=== PATIENT | female | born 1940 | race Caucasian/White ===

== ENCOUNTER 2021-03-31 10:13 | Day surgery (SDC) | payer MEDICARE ==
[2021-03-30 14:39] LABS: ANION GAP 6 mmol/L (5-15); CALCIUM 9.3 mg/dL (8.5-10.1); CHLORIDE 110 mmol/L (98-107); CREATININE 0.76 mg/dL (0.55-1.02)
[~2021-03-31] VITALS: Ht 158.8 cm; Wt 65.0 kg
[~2021-03-31 10:13] MED LIST: ACETAMINOPHEN 650 MG/20.3 ML UDC PO PRN; BENAZAPRIL PO; BISACODYL 10 MG SUPP PR PRN; CEFAZOLIN PMX 2GM/50ML 50 ML IVPB SCH; DIPHENHYDRAMINE 50 MG CAPSULE PO PRN; DOCUSATE 100 MG CAPSULE PO SCH; EPINEPHRINE 1 MG/ML, 1ML ONE; HYDROcodone/APAP 5/325 TABLET PO PRN; HYDROmorphone 1 MG/ML, 1ML INJ IV PRN; KETOROLAC 30 MG/1 ML ONE; MAGNESIUM HYDROXIDE 8%, 30ML UDC PO PRN; NS + 20MEQ KCL 1,000 ML IV SCH; ONDANSETRON 2MG/ML, 2ML IV PRN; ONDANSETRON 4 MG TABLET PO PRN; OXYcodone IR 5MG TABLET PO PRN; ROPIvacaine/PF 0.5%, 20 ML ONE; ROPIvacaine/PF 0.5%, 30 ML ONE; SENNA/DOCUSATE TABLET PO PRN; SODIUM CHLORIDE 0.9% 50 ML ONE; Simvastatin PO; TRANEXAMIC ACID 100 MG/ML, 10ML ONE; VANCOMYCIN 1,000 MG ONE; ZOLPIDEM 5MG TABLET PO PRN; amlodipine PO
[2021-03-31] MEDS ORDERED: FENTANYL PF 250 MCG/5ML ONE (10:22)
[2021-03-31 10:28] VITALS: BP 145/80
[2021-03-31] MEDS ORDERED: LACTATED RINGERS 1,000 ML IV SCH (10:30)
[2021-03-31] MEDS ORDERED: GABAPENTIN 300 MG CAPSULE PO ONE (10:30)
[2021-03-31] MEDS ORDERED: CHLORHEXIDINE 15 ML UDC PO ONE (10:30)
[2021-03-31] MEDS ORDERED: ACETAMINOPHEN 500 MG TABLET PO ONE (10:30)
[2021-03-31] MEDS ORDERED: CHLORHEXIDINE 15 ML UDC ONE (10:48)
[2021-03-31] MEDS ORDERED: ACETAMINOPHEN 500 MG TABLET ONE (10:48)
[2021-03-31] MEDS ORDERED: BENA10TA59 PO (11:02)
[2021-03-31] MEDS ORDERED: OMEP40CA8 PO (11:02)
[2021-03-31] MEDS ORDERED: AMLO-211 PO (11:02)
[2021-03-31] MEDS ORDERED: SIMV20TA19 PO (11:02)
[2021-03-31] MEDS ORDERED: DIPH25CA61 PO (11:03)
[2021-03-31] MEDS ORDERED: PROPOFOL 10 MG/ML, 20ML ONE (11:55)
[2021-03-31] MEDS ORDERED: DEXAMETHASONE 4 MG/ML, 1ML ONE (11:55)
[2021-03-31] MEDS ORDERED: ONDANSETRON 2MG/ML, 2ML ONE ×2 (11:55→13:04)
[2021-03-31] MEDS ORDERED: CEFAZOLIN 1,000 MG ONE (11:55)
[2021-03-31] MEDS ORDERED: HYDROmorphone 1 MG/ML, 1ML INJ IVPush PRN (12:00)
[2021-03-31] MEDS ORDERED: OXYcodone 5 MG/5 ML ORAL.SOL UDC PO PRN (12:00)
[2021-03-31] MEDS ORDERED: LABETALOL 5MG/ML, 20ML IV PRN (12:00)
[2021-03-31] MEDS ORDERED: METHOCARBAMOL 1,000 MG in DEXTROSE 5% 100 ML IV PRN (12:00)
[2021-03-31] MEDS ORDERED: ONDANSETRON 2MG/ML, 2ML IVPush PRN (12:00)
[2021-03-31] MEDS ORDERED: PROMETHAZINE 25 MG/ML, 1ML IVPush PRN (12:00)
[2021-03-31] MEDS ORDERED: hydrALAzine 20 MG/ML, 1ML IV PRN (12:00)
[2021-03-31] MEDS ORDERED: PROMETHAZINE 25 MG SUPP PR PRN (12:00)
[2021-03-31] MEDS ORDERED: FENTANYL PF 100 MCG/2ML IV PRN (12:00)
[2021-03-31] MEDS ORDERED: LORazepam 2 MG/ML, 1ML IVPush PRN (12:00)
[2021-03-31] MEDS ORDERED: PROMETHAZINE 25 MG/ML, 1ML ONE (13:05)
[2021-03-31] MEDS ORDERED: ASPIRIN 81 MG TABLET EC PO SCH (18:00)
[2021-03-31] MEDS ORDERED: SIMVASTATIN 20 MG TABLET PO SCH (21:00)
[2021-03-31] MEDS ORDERED: BENAZEPRIL 10 MG TABLET PO SCH (21:00)
[2021-04-01] MEDS ORDERED: DEXAMETHASONE 4 MG/ML, 1ML IVPush SCH (06:00)
[2021-04-01] MEDS ORDERED: AMLODIPINE 10 MG TAB PO SCH (09:00)
[2021-04-01] MEDS ORDERED: TEMPLATE NON-FORMULARY MED. (Omeprazole** 40 MG) PO SCH (09:00)
== END 2021-03-31 18:08 | disposition home or self-care (01) ==
LOC: OUT 10:13
PROVIDERS: ATTEND Orthopaedic Surgery
DX: M17.0 Bilateral primary osteoarthritis of knee (principal); M21.162 Varus deformity, not elsewhere classified, left knee; M25.762 Osteophyte, left knee; M06.9 Rheumatoid arthritis, unspecified; K21.9 Gastro-esophageal reflux disease without esophagitis; M81.0 Age-related osteoporosis without current pathological fracture; I10 Essential (primary) hypertension; I44.7 Left bundle-branch block, unspecified; Z20.822 Contact with and (suspected) exposure to COVID-19; Z79.899 Other long term (current) drug therapy; Z82.49 Family history of ischemic heart disease and other diseases of the circulatory system
CPT/HCPCS: 27447; 36415; 64447; 80048; 87081; 93005; 97110; 97161; 97166; C1713; C1776; J0171; J0690; J1100; J1885; J2405; J2550; J2704; J2795; J3010; J3370; J7120; U0003; U0005